=== PATIENT | male | born 1980 | race Hispanic/Latino ===

== ENCOUNTER 2018-09-25 18:11 | Emergency (ER) | payer BC, SELFPAY ==
[2018-09-25] MEDS ORDERED: Ketorolac Tromethamine 30 MG/ML VIAL ONE (18:39)
== END 2018-09-25 18:50 | disposition home or self-care (01) ==
LOC: ERS 18:11
DX: K02.9 Dental caries, unspecified (principal); F17.210 Nicotine dependence, cigarettes, uncomplicated
CPT/HCPCS: 96372; J1885

== ENCOUNTER 2018-10-19 12:38 | Emergency (ER) | payer SELFPAY ==
[2018-10-19] MEDS ORDERED: Ketorolac Tromethamine 30 MG/ML VIAL ONE (16:08)
[2018-10-19] MEDS ORDERED: Morphine 4 MG/ML VIAL ONE (16:55)
--- NOTE | 2018-10-19 17:49 | ULT ---
EXAM: Testicular/scrotal ultrasound HISTORY: Scrotal pain COMPARISON: None TECHNIQUE: Multiplanar grayscale and color Doppler images were obtained in a testicular/scrotal ultra sound. Spectral analysis of the Doppler waveforms of the testicles were performed. FINDINGS: Right testicle: Normal in echogenicity. No focal mass. Normal internal flow. Left testicle: Normal in echogenicity. No focal mass. Normal internal flow. Right epididymis. No epididymal cyst. Normal internal flow. Left epididymis. No epididymal cyst. Normal internal flow. No hydrocele is present. No varicocele is present. A mildly prominent lymph node is seen in the left inguinal region at the area of palpable pain. IMPRESSION: No significant scrotal/testicular abnormality
== END 2018-10-19 17:40 | disposition home or self-care (01) ==
LOC: ERS 12:38
DX: L03.314 Cellulitis of groin (principal); R59.0 Localized enlarged lymph nodes; F17.210 Nicotine dependence, cigarettes, uncomplicated
CPT/HCPCS: 76870; 93976; 96372; J1885; J2270

== ENCOUNTER 2019-07-16 16:06 | Emergency (ER) | payer SELFPAY | END 2019-07-16 19:28 | disposition left against medical advice (07) | LOC: ERS 16:06 | DX: Z53.21 Procedure and treatment not carried out due to patient leaving prior to being seen by health care provider (principal) ==